=== PATIENT | female | born 1940 | race Two or more races ===

== ENCOUNTER 2023-12-13 10:35 | Emergency (ER) | payer OTHER ==
[~2023-12-13] VITALS: Ht 157.5 cm; Wt 54.4 kg
[2023-12-13] MEDS ORDERED: ELIQUIS5 MG PO (11:51)
[2023-12-13 12:16] LABS: HEMATOCRIT 38.1 % (36.0-45.00); HEMOGLOBIN 12.9 g/dL (12.0-15.00); MEAN CELL VOLUME 89.7 fL (80.00-100.00); MEAN CORPUSCULAR HEMOGLOBIN 30.5 pg (27.00-32.0); RED BLOOD COUNT 4.24 M/uL (4.00-6.00); RED CELL DISTRIBUTION WIDTH 13.8 % (11.5-14.5)
[2023-12-13 12:37] LABS: PLATELET COUNT 112 K/uL (150-450)
[2023-12-13 12:44] LABS: ALBUMIN 3.3 gm/dL (3.4-5.0); BILIRUBIN TOTAL 0.87 mg/dL (0.3-1.2); CALCIUM 8.7 mg/dL (8.5-10.1); CREATININE SERUM 0.61 mg/dL (0.55-1.02); GFR 93.67; GLOBULINA 3.6 G/DL (2.4-3.5); POTASSIUM 3.78 mEq/L (3.5-5.1); TOTAL PROTEIN 6.9 gm/dL (6.4-8.2)
[2023-12-13 15:54] LABS: URINE APPEARANCE Clear; URINE BILIRRUBIN Negative (NEGATIVE); URINE BLOOD Negative; URINE COLOR Yellow; URINE GLUCOSE Negative (NEGATIVE); URINE LEUKOCYTE Moderate; URINE NITRATE Negative; URINE PROTEIN Negative (NEGATIVE); URINE UROBILINOGEN 0.2 E.U./dl
[2023-12-13 15:57] LABS: URINE BACTERIA 298.5 uL (0.0-1933); URINE EPITHELIAL CELLS 10.9 uL (0.0-38.8); URINE WBC 121.3 uL (0.0-23.2)
== END 2023-12-13 17:28 | disposition home or self-care (01) ==
LOC: ER 10:36
PROVIDERS: Emergency Medicine
DX: U07.1 COVID-19 (principal); E86.0 Dehydration; Z88.8 Allergy status to other drugs, medicaments and biological substances
CPT/HCPCS: 36415; 71046; 93005; 96365; 99284; J3490

== ENCOUNTER 2023-12-21 05:08 | Emergency (ER) | payer OTHER ==
[~2023-12-21] VITALS: Ht 167.6 cm; Wt 49.4 kg
[~2023-12-21 05:08] MED LIST: ELIQUIS5 MG PO
== END 2023-12-21 08:48 | disposition home or self-care (01) ==
LOC: ER 05:09
DX: S01.82XA Laceration with foreign body of other part of head, initial encounter (principal); W18.39XA Other fall on same level, initial encounter; Y93.89 Activity, other specified; Y92.018 Other place in single-family (private) house as the place of occurrence of the external cause; Z88.8 Allergy status to other drugs, medicaments and biological substances; I49.8 Other specified cardiac arrhythmias; Z98.890 Other specified postprocedural states